=== PATIENT | male | born 1985 | race African-American/Black ===

== ENCOUNTER 2024-11-18 09:35 | Emergency (ER) | payer SELFPAY ==
[2024-11-18] VITALS (8 sets, daily range): BP systolic 108–129; BP diastolic 74–88
[~2024-11-18] VITALS: Ht 170.2 cm; Wt 70.3 kg
[2024-11-18 09:58] LABS: BASO% 0.5 % (0-3); EOS% 1.9 % (0-8); HEMATOCRIT 45.2 % (39.0-50.0); HEMOGLOBIN 13.9 g/dl (14.0-18.0); LYMPH% 48.2 % (15-41); MEAN CELL VOLUME 74.6 fL CALC (80.0-100.0); MEAN CORPUSCULAR HGB 22.9 pG CALC (26.0-32.0); MEAN CORPUSCULAR HGB CONC 30.8 g/dL CAL (32.0-36.0); MONO% 9.2 % (2-13); NEUT# 1.66 thou/uL (1.82-7.42); NEUT% 40.2 % (42-76); RED BLOOD COUNT 6.06 mill/uL (4.70-6.10); RED CELL DISTRI WIDTH 13.8 % (11.5-15.5)
[2024-11-18 10:10] LABS: ALBUMIN 4.2 g/dL (3.2-5.0); BILIRUBIN, TOTAL 0.6 mg/dL (0.2-1.3); CREATININE 0.9 mg/dL (0.7-1.3); POTASSIUM 4.7 mmol/l (3.5-5.1); TOTAL PROTEIN 7.5 g/dL (6.3-8.2)
[2024-11-18 10:15] LABS: URINE BILIRUBIN - DIPSTICK Negative (NEGATIVE); URINE BLOOD DIPSTICK Negative (NEGATIVE); URINE GLUCOSE - DIPSTICK Negative (NEGATIVE); URINE KETONE Negative (NEGATIVE); URINE LEUK ESTERASE Negative (NEGATIVE); URINE NITRITE - DIPSTICK Negative (Negative); URINE PH 5.5 (4.5-8.0); URINE PROTEIN - DIPSTICK Negative (NEG-TRACE); URINE SPECIFIC GRAVITY 1.015; URINE UROBILINOGEN - DIPSTICK 0.2 E.U./dL (0.2)
[2024-11-18 10:19] LABS: URINE COLOR Yellow
[2024-11-18] MEDS ORDERED: MIRALAX17 GM PO (11:48)
== END 2024-11-18 12:07 | disposition home or self-care (01) | DRG 392 ==
LOC: ED 09:35
PROVIDERS: Family Medicine
DX: K59.00 Constipation, unspecified (principal); R10.11 Right upper quadrant pain
CPT/HCPCS: Q9967